=== PATIENT | female | born 1955 | race Caucasian/White ===

== ENCOUNTER 2018-12-25 12:56 | Emergency (ER) | payer MEDICARE, BC ==
[~2018-12-25] VITALS: Ht 167.6 cm; Wt 64.5 kg
[2018-12-25] MEDS ORDERED: morphine 4 MG/ML inj SYRINge IV ONE ×2 (13:55→14:45)
[2018-12-25] MEDS ORDERED: ondansetron/PF 4mg/2ml inj IV ONE (14:05)
[2018-12-25] MEDS ORDERED: cyclobenzaprine 10mg tablet PO ONE (15:55)
[2018-12-25] MEDS ORDERED: ketorolac tromethamine 15mg/ml inj. IV ONE (15:55)
[2018-12-25] MEDS ORDERED: CYCL-1 PO (15:56)
[2018-12-25] MEDS ORDERED: HYDR-4353 PO (15:56)
--- NOTE | 2018-12-25 16:12 | NUR ---
[facility] is unable to come give PT a TLSO brace. They suggested calling [facility].
[2018-12-25 17:37] VITALS: BP 169/71
== END 2018-12-25 17:40 | disposition home or self-care (01) ==
LOC: ER 12:57
DX: S32.028A Other fracture of second lumbar vertebra, initial encounter for closed fracture (principal); I49.9 Cardiac arrhythmia, unspecified; Z88.5 Allergy status to narcotic agent; W18.39XA Other fall on same level, initial encounter; Y93.89 Activity, other specified; Y92.89 Other specified places as the place of occurrence of the external cause; Y99.8 Other external cause status
CPT/HCPCS: 72131; 96374; 96375; 96376; 99284; J1885; J2270; J2405

== ENCOUNTER 2020-10-31 19:17 | Emergency (ER) | payer MEDICARE, BC ==
[~2020-10-31] VITALS: Ht 167.6 cm; Wt 58.2 kg
[~2020-10-31 19:17] MED LIST: CYCL-1 PO
[2020-10-31] MEDS ORDERED: LORazepam 2 mg/ml vial IV ONE (19:45)
[2020-10-31] MEDS ORDERED: glucagon, human recombinant 1mg kit IV ONE (19:45)
--- NOTE | 2020-10-31 20:07 | NUR ---
PT IS TO AVOID [facility] IF POSSIBLE SHE WOULD LIKE TO DRIVE HOME AND DOSE NOT HAVE A PERSONAL INJURY LEGAL ASSISTANT .
[2020-10-31 21:31] VITALS: BP 172/78
== END 2020-10-31 21:33 | disposition home or self-care (01) ==
LOC: ER 19:18
DX: T18.108A Unspecified foreign body in esophagus causing other injury, initial encounter (principal); E03.9 Hypothyroidism, unspecified; F41.9 Anxiety disorder, unspecified; Z72.89 Other problems related to lifestyle; Z88.5 Allergy status to narcotic agent; Z79.899 Other long term (current) drug therapy; X58.XXXA Exposure to other specified factors, initial encounter; Y93.89 Activity, other specified; Y92.89 Other specified places as the place of occurrence of the external cause; Y99.8 Other external cause status
CPT/HCPCS: 96374; 99284; J1610

== ENCOUNTER 2021-11-08 11:09 | Outpatient (CLI) | payer MEDICARE, BC | END 2021-11-08 23:59 | disposition home or self-care (01) | LOC: RAD 11:09 | PROVIDERS: ATTEND Psychiatry & Neurology Neurology | DX: R41.3 Other amnesia (principal) | CPT/HCPCS: 95816 ==

== ENCOUNTER 2022-11-07 06:01 | Day surgery (SDC) | payer MEDICARE, BC ==
[2022-11-07] VITALS (9 sets, daily range): BP systolic 108–137; BP diastolic 48–61
[~2022-11-07] VITALS: Ht 167.6 cm; Wt 64.6 kg
[2022-11-07] MEDS ORDERED: LIDOcaine 1% 30ml preserv. free vial ONE (06:52)
[2022-11-07] MEDS ORDERED: verapamil 2.5 mg/ml inj IV ONE (06:52)
[2022-11-07] MEDS ORDERED: nitroGLYCERIN-Tridil 50MG/D5W 250 ML IV ONE (06:52)
[2022-11-07] MEDS ORDERED: midazolam 1 mg/ML 2ml injection ONE ×2 (06:52→07:44)
[2022-11-07] MEDS ORDERED: fentaNYL/PF 50MCG/1 ML 2ML syringe ONE (06:52)
[2022-11-07] MEDS ORDERED: heparin 1,000unit/ml 10ml vial 10 ML ONE (06:52)
[2022-11-07] MEDS ORDERED: iohexol 350MG/ML 100ml bottle IV ONE (06:53)
[2022-11-07] MEDS ORDERED: iohexol 350 MG/ML 50ML vial IV ONE (06:53)
[2022-11-07] MEDS ORDERED: normal saline 1,000 ML IV SCH (07:00)
[2022-11-07] MEDS ORDERED: diphenhydrAMINE 25mg capsule PO PRN (07:00)
[2022-11-07 07:01] LABS: BASOPHILS % (AUTO) 0.8 % (0-1); EOSINOPHILS # (AUTO) 0.1 X10'3 (0-0.9); EOSINOPHILS % (AUTO) 2.2 % (0-6); HEMATOCRIT 38.1 % (35.0-45.0); HEMOGLOBIN 12.8 g/dl (12.0-16.0); LYMPHOCYTES # (AUTO) 0.8 X10'3 (1.1-4.8); LYMPHOCYTES % (AUTO) 18.9 % (21-51); MEAN CORPUSCULAR HEMOGLOBIN 29.3 PG (27.0-31.0); MEAN CORPUSCULAR HGB CONC 33.6 g/dL (33.0-36.5); MEAN CORPUSCULAR VOLUME 87.2 FL (78-98); MEAN PLATELET VOLUME 7.8 FL (7.4-10.4); MONOCYTES # (AUTO) 0.4 X10'3 (0-0.9); MONOCYTES % (AUTO) 9.8 % (2-12); NEUTROPHILS % (AUTO) 68.3 % (42-75); PLATELET COUNT 172 X10'3 (140-440); RED BLOOD COUNT 4.37 X10'6 (4.20-5.60); RED CELL DISTRIBUTION WIDTH 13.6 % (11.5-14.5); WHITE BLOOD COUNT 4.3 X10'3 (4.5-11.0)
[2022-11-07] MEDS ORDERED: ATOR10TA70 PO (07:17)
[2022-11-07] MEDS ORDERED: LEVO88TA7 PO (07:17)
[2022-11-07] MEDS ORDERED: PARO20TA6 PO (07:17)
[2022-11-07] MEDS ORDERED: CARV3.122 PO (07:17)
[2022-11-07 07:19] LABS: APTT 27 SECONDS (22-32)
[2022-11-07 07:29] LABS: ALBUMIN 3.5 G/DL (3.4-5.0); ANION GAP 8 (8-16); BLOOD UREA NITROGEN 20 MG/DL (7-18); BUN/CREATININE RATIO 34.5 (10.0-20.0); CALCIUM 8.8 MG/DL (8.5-10.1); CHLORIDE 107 MMOL/L (99-107); CREATININE 0.58 MG/DL (0.40-0.90); GLUCOSE 90 MG/DL (70-104); POTASSIUM 4.2 MMOL/L (3.5-5.1); SODIUM 144 MMOL/L (135-145); TOTAL CARBON DIOXIDE 29.3 MMOL/L (24-32); eGFR > 90 ML/MIN
[2022-11-07] MEDS ORDERED: ondansetron/PF 4mg/2ml inj IV PRN (08:35)
[2022-11-07] MEDS ORDERED: normal saline 1000ml 1,000 ML IV SCH (08:35)
[2022-11-07] MEDS ORDERED: HYDROcodone/acetaminophen 10/325mg tab PO PRN (08:40)
[2022-11-07] MEDS ORDERED: HYDROcodone/acetaminophen 5mg/325mg tablet PO PRN (08:40)
[2022-11-07] MEDS ORDERED: proCHLORperazine 10 MG/2 ml inj IV PRN (08:40)
== END 2022-11-07 11:18 | disposition home or self-care (01) ==
LOC: SSTAY O 06:01
PROVIDERS: ATTEND Internal Medicine Cardiovascular Disease
DX: R07.89 Other chest pain (principal); I25.10 Atherosclerotic heart disease of native coronary artery without angina pectoris; E78.00 Pure hypercholesterolemia, unspecified; Z95.5 Presence of coronary angioplasty implant and graft; E78.5 Hyperlipidemia, unspecified; Z87.891 Personal history of nicotine dependence; Z79.899 Other long term (current) drug therapy
CPT/HCPCS: 36415; 80048; 83735; 85025; 85610; 85730; 93458; 99152; 99153; C1760; C1894; J1644; J2250; J3010; J3490; J7030; Q9967; A6258; C1725